=== PATIENT | female | born 1980 | race African-American/Black ===

== ENCOUNTER 2019-02-03 17:49 | Emergency (ER) | payer BC ==
[~2019-02-03] VITALS: Ht 165.1 cm; Wt 93.0 kg
[~2019-02-03 17:49] MED LIST: ACETAMINOPHEN-1 EAC1 PO; OMEPRAZOLE40 MG PO
[2019-02-03] MEDS ORDERED: PENICILLIN V P500 MG PO (18:05)
[2019-02-03] MEDS ORDERED: TRAMADOL 50 MG50 MG PO (18:05)
[2019-02-03 18:13] VITALS: BP 141/93
== END 2019-02-03 18:13 | disposition home or self-care (01) ==
LOC: M.ERS 17:49
DX: K02.9 Dental caries, unspecified (principal); Z98.890 Other specified postprocedural states

== ENCOUNTER 2019-03-24 08:20 | Emergency (ER) | payer BC ==
[~2019-03-24] VITALS: Ht 160 cm; Wt 81.7 kg
[~2019-03-24 08:20] MED LIST changes: +PENICILLIN V P500 MG PO; +TRAMADOL 50 MG50 MG PO
[2019-03-24 09:07] LABS: ABSOLUTE MONOCYTES 0.5 thou/uL (0.0-1.2); ABSOLUTE NEUTROPHILS 2.6 thou/uL (1.6-8.1); BASOPHILS 0.8 %; EOSINOPHILS 0.2 %; HEMATOCRIT 37.4 % (37.0-47.0); HEMOGLOBIN 12.7 gm/dL (12.0-15.0); LYMPHOCYTES 23.9 %; MCH 29.3 pg (26.0-34.0); MCV 86.3 fL (80.0-100.0); MONOCYTES 11.1 %; MPV 7.2 fl. (7.2-11.1); NUCLEATED RBCS 0 /100WBC; PLATELET COUNT* 201 thou/uL (150-400); RBC 4.34 mil/uL (4.20-5.00); RDW-CV 13.2 % (10.5-14.5); WBC 4.1 thou/uL (4.0-11.0)
[2019-03-24 09:23] LABS: ALBUMIN 3.5 g/dL (3.4-5.0); CALCIUM 8.4 mg/dL (8.5-10.1); POTASSIUM 3.5 mmol/L (3.5-5.1); TOTAL BILIRUBIN 0.6 mg/dL (<0.1-1.0); TOTAL PROTEIN 7.7 g/dL (6.4-8.2)
[2019-03-24 11:48] LABS: URINE BILIRUBIN NEGATIVE (Negative); URINE BLOOD NEGATIVE (Negative); URINE CLARITY CLEAR; URINE COLOR YELLOW; URINE GLUCOSE-RANDOM NEGATIVE (Negative); URINE KETONES NEGATIVE (Negative); URINE LEUKOCYTES-REFLEX NEGATIVE (Negative); URINE NITRITE-REFLEX NEGATIVE (Negative); URINE PROTEIN 1+ (Negative); URINE SPECIFIC GRAVITY 1.025 (1.005-1.030); URINE UROBILINOGEN 0.2 E.U./dl (0.2-1.0)
[2019-03-24] MEDS ORDERED: CARAFATE 1 GM TA1 GM PO (12:25)
[2019-03-24] MEDS ORDERED: IBUPROFEN 800800 MG PO (12:25)
[2019-03-24] MEDS ORDERED: AMOXICILLIN500 M1 PO (12:27)
[2019-03-24 12:40] VITALS: BP 141/94
== END 2019-03-24 12:41 | disposition home or self-care (01) ==
LOC: M.ERS 08:20
PROVIDERS: Personal Emergency Response Attendant
DX: K29.70 Gastritis, unspecified, without bleeding (principal); J02.9 Acute pharyngitis, unspecified; R51 Headache; Z98.51 Tubal ligation status; Z98.890 Other specified postprocedural states

== ENCOUNTER 2019-08-06 10:31 | Emergency (ER) | payer OTHER ==
[~2019-08-06] VITALS: Ht 165.1 cm; Wt 99.8 kg
[~2019-08-06 10:31] MED LIST changes: +AMOXICILLIN500 M1 PO; +CARAFATE 1 GM TA1 GM PO; +IBUPROFEN 800800 MG PO
[2019-08-06 10:57] LABS: ABSOLUTE EOSINOPHILS 0.3 thou/uL (0.0-0.7); ABSOLUTE LYMPHOCYTES 1.6 thou/uL (0.8-5.3); ABSOLUTE MONOCYTES 0.3 thou/uL (0.0-1.2); ABSOLUTE NEUTROPHILS 2.8 thou/uL (1.6-8.1); BASOPHILS 0.9 %; EOSINOPHILS 5.8 %; HEMATOCRIT 40.4 % (37.0-47.0); HEMOGLOBIN 13.6 gm/dL (12.0-15.0); LYMPHOCYTES 31.4 %; MCH 28.7 pg (26.0-34.0); MCHC 33.6 g/dL (28.0-37.0); MCV 85.5 fL (80.0-100.0); MONOCYTES 6.7 %; MPV 7.4 fl. (7.2-11.1); NUCLEATED RBCS 0 /100WBC; PLATELET COUNT* 240 thou/uL (150-400); POLYS 55.2 %; RBC 4.72 mil/uL (4.20-5.00); RDW-CV 14.7 % (10.5-14.5); WBC 5.1 thou/uL (4.0-11.0)
[2019-08-06 11:17] LABS: CALCIUM 9.2 mg/dL (8.5-10.1); CREATININE 0.9 mg/dL (0.6-1.3); POTASSIUM 3.6 mmol/L (3.5-5.1)
[2019-08-06 11:27] LABS: ALBUMIN 3.7 g/dL (3.4-5.0); MAGNESIUM 1.7 mg/dL (1.8-2.4); TOTAL BILIRUBIN 0.4 mg/dL (<0.1-1.0)
[2019-08-06] MEDS ORDERED: HYDROXYZINE HCL25 M2 PO (11:46)
[2019-08-06 13:57] VITALS: BP 129/77
--- NOTE | 2019-08-06 16:56 | EKG ---
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 : 1980 Requested By: Latia Álvarez Order Number: [id number] MD: Raz Guevara Measurements Intervals [place] Rate: 78 P: 5 CA: 169 QRS: -13 QRSD: 91 T: 1 QT: 395 QTc: 450 Interpretive Statements Sinus rhythm Left ventricular hypertrophy Borderline T abnormalities, lateral leads Baseline wander in lead(s) I,II,III,aVR,aVL,aVF,V1,V2,V3,V4,V5,V6 Compared to ECG 03/10/2017 17:45:34 T-wave abnormality now present Electronically Signed On 08-06-2019 16:56:00 DISPENSING AUDIOLOGIST by Raz Geuvara [email or web address] <ELECTRONICALLY SIGNED> By: Raz Guevara MD, FACC 08/06/19 [id number] [id number] Raz Guevara MD, FACC /EPI
== END 2019-08-06 13:59 | disposition home or self-care (01) ==
LOC: M.ERS 10:31
PROVIDERS: Nurse Practitioner Family
DX: R07.89 Other chest pain (principal); F41.9 Anxiety disorder, unspecified; Z98.890 Other specified postprocedural states